=== PATIENT | female | born 1935 | race Caucasian/White ===

== ENCOUNTER → 2019-01-22 | Outpatient (CLI) | payer OTHER | END | disposition home or self-care (01) | LOC: NUCLEAR 11:00 | DX: M79.605 Pain in left leg (principal); I73.9 Peripheral vascular disease, unspecified ==

== ENCOUNTER 2019-01-24 15:47 | Outpatient (CLI) | payer OTHER | END 2019-01-24 18:00 | disposition home or self-care (01) | LOC: NUCLEAR 15:47 | DX: M79.605 Pain in left leg (principal) ==

== ENCOUNTER 2020-01-13 10:18 | Outpatient (CLI) | payer OTHER | END 2020-01-13 10:21 | disposition home or self-care (01) | LOC: MAMO-SONO 10:18 | DX: R92.8 Other abnormal and inconclusive findings on diagnostic imaging of breast (principal); Z12.31 Encounter for screening mammogram for malignant neoplasm of breast ==

== ENCOUNTER → 2020-12-02 08:28 | Outpatient (CLI) | payer OTHER | END | disposition home or self-care (01) | LOC: PPH VACUNA 08:28 | PROVIDERS: ATTEND Emergency Medicine Pediatric Emergency Medicine | DX: Z23 Encounter for immunization (principal) ==

== ENCOUNTER 2021-11-03 08:08 | Outpatient (CLI) | payer OTHER | END 2021-11-03 08:11 | disposition home or self-care (01) | LOC: MAMO-SONO 08:08 | PROVIDERS: ATTEND Specialist | DX: N64.59 Other signs and symptoms in breast (principal); Z12.31 Encounter for screening mammogram for malignant neoplasm of breast ==

== ENCOUNTER 2022-04-21 08:56 | Outpatient (CLI) | payer OTHER | END 2022-04-21 09:06 | disposition home or self-care (01) | LOC: PPH VACUNA 08:56 | PROVIDERS: ATTEND Emergency Medicine Pediatric Emergency Medicine | DX: Z23 Encounter for immunization (principal) ==

== ENCOUNTER 2022-05-20 07:55 | Outpatient (CLI) | payer OTHER | END 2022-05-20 07:56 | disposition home or self-care (01) | LOC: NUCLEAR 07:55 | PROVIDERS: ATTEND Specialist | DX: M81.0 Age-related osteoporosis without current pathological fracture (principal) ==

== ENCOUNTER 2022-08-02 09:09 | Outpatient (CLI) | payer OTHER | END 2022-08-02 09:19 | disposition home or self-care (01) | LOC: PPH VACUNA 09:09 | PROVIDERS: ATTEND Emergency Medicine Pediatric Emergency Medicine | DX: Z23 Encounter for immunization (principal) ==

== ENCOUNTER 2024-06-18 08:15 | Outpatient (CLI) | payer OTHER | END 2024-06-18 08:20 | disposition home or self-care (01) | LOC: NUCLEAR 08:15 | DX: I87.2 Venous insufficiency (chronic) (peripheral) (principal); I82.409 Acute embolism and thrombosis of unspecified deep veins of unspecified lower extremity ==